=== PATIENT | male | born 1950 | race Caucasian/White ===

== ENCOUNTER → 2019-09-18 15:39 | Outpatient (CLI) | payer MEDICARE, SELFPAY ==
--- NOTE | 2019-09-18 | DI.RAD.S_ITS ---
PROCEDURE: XR CHEST 2V INDICATIONS: Fever, unspecified cause TECHNIQUE: 2 views of the chest were acquired. COMPARISON: None. FINDINGS: Surgical changes and devices: None. Lungs and pleura: Lungs are clear. No pleural effusions or pneumothorax. Mediastinum: Mediastinal contours are normal. Heart size is normal. Bones and chest wall: No suspicious bony abnormalities. Soft tissues appear unremarkable. IMPRESSION: No acute cardiopulmonary disease process. Dictated by: Pamela Aragon MD, PhD on 09/18/2019 at 18:13 Approved by: Pamela Aragon MD, PhD on 09/18/2019 at 18:14
[2019-09-18 15:49] LABS: Bacteria Urine None Seen; RBC Urine None Seen (0-5/HPF)
[2019-09-18 17:38] LABS: Add Manual Diff / Slide Review NO; Basophils Absolute Auto 0 /uL (0-100); Basophils Percent Auto 0.9 % (0-2); Eosinophils Absolute Auto 0 /uL (0-450); Hematocrit 45.3 % (41-53); Hemoglobin 15.7 g/dL (13.5-17.5); Lymphocytes Absolute Auto 800 /uL (1100-4500); Lymphocytes Percent Auto 22.3 % (25-40); Mean Corpuscular HGB Conc 34.7 % (30-36); Mean Corpuscular Hemoglobin 34.6 PG (26-34); Mean Corpuscular Volume 99.6 fL (80-100); Monocytes Absolute Auto 500 /uL (0-900); Monocytes Percent Auto 14.2 % (3-14); Neutrophils Absolute Auto 2300 /uL (1500-7000); Neutrophils Percent Auto 62.6 % (50-75); Platelet Count 146 X10^3/uL (150-400); Red Blood Cell Count 4.54 X10^6/uL (4.5-5.9); Red Cell Distribution Width 12.9 % (11.6-14.8); White Blood Cell Count 3.6 X10^3/uL (4.5-11.0)
[2019-09-18 17:55] LABS: Appearance Urine UA SL CLOUDY; Bilirubin Urine UA NEGATIVE (NEGATIVE); Color Urine UA YELLOW; Glucose Urine UA NEGATIVE (Negative); Ketones Urine UA 1+ (NEGATIVE); Leukocyte Esterase Urine UA NEGATIVE (NEGATIVE); Nitrite Urine UA NEGATIVE (Negative); Occult Blood Urine UA NEGATIVE (Negative); Protein Urine UA NEGATIVE (Negative); Specific Gravity Urine UA 1.025 (1.000-1.035); Urobilinogen Urine UA 0.2 E.U./dL (0.2)
[2019-09-18 18:09] LABS: Squamous Epithelial Cell Urine 0-1 /HPF (0-5/HPF); WBC Urine 1-5/HPF (0-5/HPF)
[2019-09-18 18:10] LABS: Culture Indicated Urine Cult Not Indicated; Mucus Urine 2+ (Negative)
== END ==
PROVIDERS: PCP Physician Assistant; Referring Provider Internal Medicine; Visit Provider Internal Medicine
DX: R50.9 Fever, unspecified (principal)
CPT/HCPCS: 36415; 71046; 81001; 85025

== ENCOUNTER → 2020-03-03 08:50 | Outpatient (CLI) | payer MEDICARE, SELFPAY ==
--- NOTE | 2020-03-03 | DI.US.S_ITS ---
PROCEDURE: US ABDOMEN LIMITED INDICATIONS: UMBILICAL HERNIA TECHNIQUE: Real-time focused scanning was performed of the abdomen, with image documentation. COMPARISON: None. FINDINGS: At the umbilical margin there is a deviation of sub peritoneal bowel ventrally, showing peristalsis, without evidence of incarceration or strangulation. IMPRESSION: Periumbilical hernia containing bowel, through a 2.2 cm peritoneal defect virtually at the umbilical margin. No sign of incarceration or strangulation. Dictated by: Kg Meyer M.D. on 03/03/2020 at 10:27 Approved by: Kg Meyer M.D. on 03/03/2020 at 10:29
== END ==
PROVIDERS: PCP Physician Assistant; Referring Provider Physician Assistant; Visit Provider Physician Assistant
DX: K42.9 Umbilical hernia without obstruction or gangrene (principal)
CPT/HCPCS: 76705

== ENCOUNTER → 2020-03-23 10:56 | Outpatient (CLI) | payer MEDICARE, SELFPAY ==
[2020-03-24 17:45] LABS: COVID19 Sendout Not Detected (Not Detect)
== END ==
PROVIDERS: PCP Physician Assistant; Visit Provider Physician Assistant
DX: Z11.59 Encounter for screening for other viral diseases (principal)
CPT/HCPCS: 87635

== ENCOUNTER 2020-03-26 07:37 | Day surgery (SDC) | payer MEDICARE, SELFPAY ==
[2020-03-25 07:34] VITALS: BMI 26.3
[2020-03-26] VITALS (10 sets, daily range): BP systolic 139–166; BP diastolic 69–88; PULSE 56–68; RESP 10–17; TEMP 36.2–36.8; O2SAT 15–100; BMI 26.3
--- NOTE | 2020-03-26 08:16 | PM.PREOP ---
Pre-operative Note COVID-19 COVID-19 status: Negative Result date/Date tested (Pos, Neg/Pending): 03/23/20 Interval Note History & Physical reviewed/Exam performed by Physician: Yes Changes to H&P: No
[2020-03-26] MEDS: LACTATED RINGERS 1,000 ML 100 ML IV ×2 (08:22→09:33)
[2020-03-26] MEDS: CEFAZOLIN 2 GM/100 ML FROZ.PIGGY IV (08:55)
--- NOTE | 2020-03-26 09:11 | SUR.OPER ---
Supine on padded OR bed, head on pillow, arms secured on padded arm boards at <90 degrees abduction, legs uncrossed, safety belt at thigh, tape over blanket over lower legs.
[2020-03-26] MEDS: BUPIVACAINE 0.25% W/ EPI 30 ML VIAL INJ (09:14)
[2020-03-26] MEDS: BUPIVACAINE LIPOSOME 266 MG/20 ML VIAL INJ (09:49)
[2020-03-26] MEDS: OXYCODONE/ACETAMINOPHEN 5/325 TABLET 1 TAB PO (10:25)
--- NOTE | 2020-03-26 10:25 | P.OP_ITS ---
Operative Date/Time/Diagnoses Date of procedure: 03/26/20 Time of procedure: 10:25 Pre-op diagnosis: umbilical hernia Post-op diagnosis: same Procedure & Clinicians Procedure: Open repair of 2 cm umbilical hernia with mesh Same procedure as scheduled: Yes Indications: 69 yo man with symptomatic umbilical hernia which is increasing in size and tenderness, as well as risk of incarceration. Surgeon: Michelle Delatorre Click Yes if Unassisted: Yes Anesthesia Type: General Operative Notes Findings: 2 cm umbilical hernia defect Specimen(s): none sent Prosthetic devices, grafts, tissues, transplants, or devices: BARD 4.3 cm ventralex mesh Estimated Blood Loss (mL): 1 Blood products transfused: none Procedure in detail: The patient was brought to the operating room, placed supine on the operating table, and sequential compression devices were placed on both legs and turned on. Appropriate perioperative antibiotics were given. General anesthesia was induced by the anesthesiologist and the patient was intubated with an LMA. The abdomen was then prepped and draped in sterile fashion, and a surgical time-out was conducted. At this point local anesthetic was injected using 0.25% Marcaine with epi, at the site of the planned incision. A 3cm transverse curvilinear incision was then made in the skin on the superior border of the umbilicus. Dissection was then carried down through the dermis and subcutaneous tissue, until the hernia sac was encountered. I dissected circumferentially around the hernia sac, which was divided off of the umbilical skin The hernia defect was 2 cm in diameter. The peritoneal sac was closed with 3-0 Vicryl and reduced through the defect. The preperitoneal space was dissected to accomodate a 4.3cm mesh posterior to the fascia overlying the peritoneal closure. A 4.3cm BARD Ventralex mesh was brought into the field and placed into the defect, between the peritoneum and the fascia. It was then sutured to the fascia in four corners using 2-0 PDS suture. I then closed the fasical defect with 2-0PDS figure of eights. I then injected the fascia with 20mL of 0.25% Marcaine with epi, and 20mL of Exparel in small aliquots. I then brought together the subcutaneous fat with 3-0 Vicryl suture, tacked down the umbilical skin with 3-0 Vicryl and closed the skin with subcuticular Monocryl 4-0. The skin edges were then sealed with Dermabond. This concluded the procedure. Two cotton balls were placed in the umbilicus and covered with a Tegaderm. The patient was awakened from anesthesia and extubated. He was transferred onto his [facility]. The patient was then transferred to the postanesthesia care unit in stable condition. He tolerated the procedure well. Needle sponge and instrument counts were correct x2 at the end of the case. Complications: none Post-operative Condition: stable Disposition: PACU
--- NOTE | 2020-03-26 10:47 | SUR.PHASEII ---
Pt arrived to phase II via stretcher. Pt sitting up and drinking beverage. Pt alert and orientated. pt reports pain is tolerable at this time, rating 2/10 at surgical site. Drsg observed to be c/d/i. Bed in lowest position and call light given to pt. Pt appears comfortable at this time.
== END 2020-03-26 11:15 | disposition home or self-care (01) ==
PROVIDERS: PCP Physician Assistant; Referring Provider Physician Assistant; Visit Provider Surgery
PROC: (CPT 49585; principal; 2020-03-26 08:45)
DX: K42.9 Umbilical hernia without obstruction or gangrene (principal); J45.909 Unspecified asthma, uncomplicated
CPT/HCPCS: 49585; C1781; C9290; J0330; J0690; J1100; J2405; J2704; J3010

== ENCOUNTER → 2020-06-03 08:55 | Outpatient (CLI) | payer MEDICARE, SELFPAY ==
--- NOTE | 2020-06-03 | DI.US.S_ITS ---
PROCEDURE: US SCROTUM INDICATIONS: RIGHT SCROTAL PAIN TECHNIQUE: Real-time scanning was performed of the scrotum and testicles, with image documentation. Color and pulse Doppler interrogation was performed of both testicles. COMPARISON: None. FINDINGS: Right: Testicle is normal in size at 2.0 x 3.2 x 4.5 cm, and homogenous in echotexture. Epididymis is normal in overall size and morphology. No hydrocele or varicoceles. Overlying scrotal skin is normal in thickness. Left: Testicle is normal in size at 2.0 x 2.9 x 4.0 cm, and homogeneous in echotexture. Epididymis is normal in overall size and morphology. No hydrocele or varicoceles. Overlying scrotal skin is normal in thickness. Doppler: Color and pulse Doppler demonstrate normal and symmetric arterial flow in both testicles. IMPRESSION: Normal scrotal ultrasound bilaterally, source of current pain is not seen. Dictated by: Kg Meyer M.D. on 06/03/2020 at 13:20 Approved by: Kg Meyer M.D. on 06/03/2020 at 13:22
== END ==
PROVIDERS: PCP Physician Assistant; Referring Provider Physician Assistant; Visit Provider Physician Assistant
DX: N50.811 Right testicular pain (principal)
CPT/HCPCS: 76870

== ENCOUNTER → 2020-11-27 08:51 | Outpatient (CLI) | payer MEDICARE, SELFPAY ==
[2020-11-27 09:50] LABS: Basophils Absolute Auto 100 /uL (0-100); Basophils Percent Auto 1.1 % (0-2); Eosinophils Absolute Auto 400 /uL (0-450); Eosinophils Percent Auto 9.1 % (2-4); Hematocrit 43.2 % (41-53); Hemoglobin 15.1 g/dL (13.5-17.5); Lymphocytes Absolute Auto 1000 /uL (1100-4500); Lymphocytes Percent Auto 22.8 % (25-40); Mean Corpuscular Hemoglobin 34.7 PG (26-34); Mean Corpuscular Volume 99.1 fL (80-100); Monocytes Absolute Auto 300 /uL (0-900); Monocytes Percent Auto 7.5 % (3-14); Neutrophils Absolute Auto 2600 /uL (1500-7000); Neutrophils Percent Auto 59.5 % (50-75); Platelet Count 178 X10^3/uL (150-400); Red Blood Cell Count 4.36 X10^6/uL (4.5-5.9); Red Cell Distribution Width 13.2 % (11.6-14.8); White Blood Cell Count 4.4 X10^3/uL (4.5-11.0)
[2020-11-27 10:03] LABS: Add Manual Diff / Slide Review SLIDE REVIEW
[2020-11-27 10:09] LABS: Alanine Aminotransferase 25 IU/L (<50); Albumin Globulin Ratio 1.3 (1.0-2.8); Alkaline Phosphatase 41 U/L (38-126); Aspartate Aminotransferase 31 IU/L (17-59); BUN Creatinine Ratio 23.3 (6-22); Bilirubin Total 0.5 mg/dL (0.2-1.3); Blood Urea Nitrogen 17 mg/dL (9-20); Calcium 9.2 mg/dL (8.4-10.2); Carbon Dioxide 29 mmol/L (22-32); Chloride 106 mmol/L (98-107); Cholesterol 138 mg/dL (140-199); Estimated Glomerular Filt Rate > 60.0 mL/min (>60); Globulin 3.2 g/dL (1.7-4.1); Glucose 98 mg/dL (80-110); HDL Cholesterol 60 mg/dL (40-60); HEMOLYSIS < 15 (0-50); LDL Cholesterol Calculated 64 mg/dL (<100); Sodium 141 mmol/L (137-145); Total Protein 7.2 g/dL (6.3-8.2); Triglycerides 71 mg/dL (35-150)
[2020-11-27 10:18] LABS: RBC Morphology Normal Morphology
== END ==
PROVIDERS: PCP Physician Assistant; Referring Provider Physician Assistant; Visit Provider Physician Assistant
DX: E78.5 Hyperlipidemia, unspecified (principal); I10 Essential (primary) hypertension
CPT/HCPCS: 36415; 80053; 80061; 85025

== ENCOUNTER → 2021-09-30 09:49 | Outpatient (CLI) | payer OTHER, SELFPAY | PROVIDERS: PCP Physician Assistant; Referring Provider Physician Assistant; Visit Provider Physician Assistant | DX: R19.7 Diarrhea, unspecified (principal) | CPT/HCPCS: 87045; 87177; 87329; 87493; 87899 ==

== ENCOUNTER → 2021-10-21 11:50 | Outpatient (CLI) | payer MEDICARE, SELFPAY ==
[2021-10-21 12:28] LABS: Add Manual Diff / Slide Review NO; Basophils Absolute Auto 0 /uL (0-100); Basophils Percent Auto 1.1 % (0-2); Eosinophils Absolute Auto 100 /uL (0-450); Eosinophils Percent Auto 1.8 % (2-4); Hematocrit 42.5 % (41-53); Hemoglobin 14.7 g/dL (13.5-17.5); Lymphocytes Absolute Auto 1400 /uL (1100-4500); Lymphocytes Percent Auto 33.9 % (25-40); Mean Corpuscular HGB Conc 34.6 % (30-36); Mean Corpuscular Hemoglobin 34.1 PG (26-34); Mean Corpuscular Volume 98.7 fL (80-100); Monocytes Absolute Auto 300 /uL (0-900); Monocytes Percent Auto 8.2 % (3-14); Neutrophils Absolute Auto 2200 /uL (1500-7000); Platelet Count 166 X10^3/uL (150-400); Red Cell Distribution Width 13.6 % (11.6-14.8); White Blood Cell Count 4.1 X10^3/uL (4.5-11.0)
== END ==
PROVIDERS: PCP Physician Assistant; Referring Provider Physician Assistant; Visit Provider Physician Assistant
DX: D72.818 Other decreased white blood cell count (principal)
CPT/HCPCS: 36415; 85025

== ENCOUNTER → 2022-02-04 09:55 | Outpatient (CLI) | payer MEDICARE, SELFPAY ==
[2022-02-04 10:32] LABS: Add Manual Diff / Slide Review NO; Basophils Absolute Auto 0 /uL (0-100); Basophils Percent Auto 1.1 % (0-2); Eosinophils Absolute Auto 100 /uL (0-450); Eosinophils Percent Auto 3.6 % (2-4); Hematocrit 41.4 % (41-53); Hemoglobin 14.3 g/dL (13.5-17.5); Lymphocytes Absolute Auto 1200 /uL (1100-4500); Lymphocytes Percent Auto 29.8 % (25-40); Mean Corpuscular HGB Conc 34.6 % (30-36); Mean Corpuscular Hemoglobin 34.5 PG (26-34); Monocytes Absolute Auto 400 /uL (0-900); Monocytes Percent Auto 9.2 % (3-14); Neutrophils Absolute Auto 2300 /uL (1500-7000); Neutrophils Percent Auto 56.3 % (50-75); Platelet Count 160 X10^3/uL (150-400); Red Blood Cell Count 4.14 X10^6/uL (4.5-5.9); Red Cell Distribution Width 13.3 % (11.6-14.8)
== END ==
PROVIDERS: PCP Physician Assistant; Referring Provider Physician Assistant; Visit Provider Physician Assistant
DX: D72.818 Other decreased white blood cell count (principal)
CPT/HCPCS: 36415; 85025

== ENCOUNTER → 2022-02-17 10:23 | Outpatient (CLI) | payer MEDICARE, SELFPAY ==
[2022-02-17 11:49] LABS: COVID19 -Nasal RAPID Negative (Negative)
== END ==
PROVIDERS: PCP Physician Assistant; Visit Provider Surgery
DX: Z20.822 Contact with and (suspected) exposure to COVID-19 (principal); Z01.812 Encounter for preprocedural laboratory examination
CPT/HCPCS: 87635; C9803

== ENCOUNTER 2022-02-18 08:27 | Day surgery (SDC) | payer MEDICARE, SELFPAY ==
--- NOTE | 2022-02-18 | PATH_ITS ---
[facility] Accession Number: [id number] . 01 Material submitted: . PART A: colon - TRANSVERSE COLON POLYP PART B: rectum - RECTAL POLYP . 01 Diagnosis: A. Transverse Colon, Polyp, Biopsy: Tubular adenoma in 1 of 3 fragments. Benign lymphoid aggregate in 1 fragment. . B. Rectum, Polyp, Biopsy: Tubular adenoma in 1 of 3 fragments. Hyperplastic polyp, 2 fragments. JNL 02/19/2022 1226 Local . 01 Electronically signed: . Adrianna Friedman MD, Pathologist NPI- [id number] . 01 Gross description: . Part A: TRANSVERSE COLON POLYP: Received in formalin are 3 fragment(s) of bernal, soft tissue measuring 0.8 x 0.7 x 0.1 cm to 0.2 x 0.1 x 0.1 cm submitted entirely in 1 cassette(s) Part B: RECTAL POLYP: Received in formalin are 2 fragment(s) of bernal, soft tissue measuring 0.8 x 0.5 x 0.4 cm to 0.5 x 0.3 x 0.3 cm submitted entirely in 1 cassette(s) /CPE 02/19/2022 0301 Local . 01 Pathologist provided ICD-10: D12.3, D12.8 . 01 CPT . 109518, 178883 Specimen Comment: A courtesy copy of this report has been sent to [phone] Performed at: [facility] [address] [place] [address] [id number] MD Brian Montemayor MD Phone: [phone]
[2022-02-18 08:40] VITALS: BP 169/78; PULSE 50; RESP 16; TEMP 36.4; O2SAT 99; BMI 23.7
[2022-02-18] MEDS: LACTATED RINGERS 1,000 ML 150 ML IV (08:55)
--- NOTE | 2022-02-18 09:37 | PM.HP.1 ---
History of Present Illness History of Present Illness Date Patient Seen: 02/18/22 Time Patient Seen: 09:37 Chief complaint: SDC Narrative: Giorgi is a 71-year-old man who is here for colonoscopy. He believes he had one 8-10 years ago and maybe a few small polyps were removed. He has known known family history colon cancer. Patient History Medical History (Updated 02/18/22 @ 09:38 by Nuno Weaver MD) Asthma Elevated cholesterol Hx of pilonidal cyst (05/1972) Vertigo Surgical History (Updated 04/11/20 @ 22:34 by Michelle Delatorre MD) Hx of cataract surgery (11/2018) Hx of tonsillectomy (1954) Hx of vasectomy (12/1992) Family & Social History Family History Mother Hypertension Father Gallstones Social History: household members spouse Tobacco & Substance use: Smoking Status Former smoker alcohol intake current alcohol intake frequency 0-2 drinks per day Substance Use Type does not use Meds Home Medications and Allergies Home Medications Medication Instructions Recorded Confirmed Type ascorbate calcium (vitamin C) 500 1,000 mg PO DAILY 03/20/20 04/10/20 History mg tablet atorvastatin 10 mg tablet 10 mg PO DAILY 03/20/20 02/18/22 History beclomethasone dipropionate 40 1 inhalation inhalation DAILY 03/20/20 04/10/20 History mcg/actuation HFA breath activated aerosol (Qvar RediHaler) multivitamin 1 cap PO DAILY 03/20/20 04/10/20 History albuterol sulfate 90 mcg/actuation 1 - 2 puff inhalation Q4-6H PRN 03/25/20 04/10/20 History aerosol inhaler Shortness Of Breath docusate sodium 100 mg capsule 100 mg PO BID prevent constipation 03/26/20 04/10/20 Rx from pain meds #20 caps sodium sul 1.479 gram-potas ch See Rx Instructions PO PER PKG DIR 02/02/22 Rx 0.188 gram-magnes sul 0.225 gram #24 tabs tablet (Sutab) Allergies Allergy/AdvReac Type Severity Reaction Status Date / Time No Known Drug Allergies Allergy Verified 02/18/22 08:51 Exam Vital Signs (past 8 hours): - 02/18/22 08:40 Temperature 97.5 F L Pulse Rate 50 L Respiratory Rate 16 Blood Pressure 169/78 H Pulse Oximetry 99 Oxygen Delivery Method Room Air Oxygen Delivery Method Room Air Const General: healthy appearing Resp Effort & Inspection: normal respiratory effort Assessment & Plan Assessment and plan (1) Colon cancer screening: Status: Acute Plan 71-year-old man here for colonoscopy for colon cancer screening. We discussed the risks benefits of colonoscopy with sedation and he would like to proceed COVID-19 COVID-19 status: Negative Result date/Date tested (Pos, Neg/Pending): 02/17/22 Time Spent With Patient Critical Care time: I spent a total of [] minutes of critical care time on this patient's care today; this time is exclusive of procedural time.
[2022-02-18] MEDS: fentaNYL 250 MCG/5 ML INJ 100 MCG IV (09:46)
[2022-02-18] MEDS: MIDAZOLAM 5 MG/5 ML VIAL IV (09:46)
--- NOTE | 2022-02-18 10:07 | PM.OP.COLON ---
Operative Date/Time/Diagnoses Date of procedure: 02/18/22 Time of procedure: 10:07 Pre-op diagnosis: Colon cancer screening Post-op diagnosis: same Procedure & Clinicians Study performed: Colonoscopy Same procedure as scheduled: Yes Surgeon: Nuno Weaver Procedure Notes Procedure in detail: Surgeon: Nuno Weaver MD Procedure: The patient was brought to the endoscopy suite, placed in left lateral decubitus position. The patient was connected to monitoring devices. A time-out was performed. Sedation was administered. Once the patient was adequately sedated, a digital rectal exam was performed and was normal. The scope was then inserted and advanced to the cecum where the appendiceal orifice was identified and photographed. The scope was then slowly withdrawn over greater than 6 minutes. The mucosa was thoroughly inspected. There was a small polyp in the transverse colon about 6 mm and removed with cold snare. There was a 5 mm polyp in the distal rectum which was removed with a hot snare. The scope was retroflexed in the rectum. No other abnormalities were noted. The scope was straightened and removed. The patient was awakened and brought to recovery. Versed: 5 mg Fentanyl: 100 mcg EBL: 5 mL Findings: 6 mm polyp in the transverse colon and 5 mm polyp in the rectum Scope withdrawal time: 12 Sedation minutes: 22 Post-procedure Recommendations: Will call with biopsy results Disposition: PACU
[2022-02-18 10:10] VITALS: BP 129/69; PULSE 56; RESP 11; TEMP 35.5; O2SAT 97
[2022-02-18 10:15] VITALS: BP 133/68; PULSE 77; RESP 20; TEMP 36.9; O2SAT 98
[2022-02-18 10:20] VITALS: BP 137/78; PULSE 68; RESP 14; TEMP 36.6; O2SAT 96
[2022-02-18 10:25] VITALS: BP 128/66; PULSE 58; RESP 12; TEMP 36.3; O2SAT 95
[2022-02-18 10:36] VITALS: BP 131/67; PULSE 55; RESP 12; TEMP 36.7; O2SAT 98
--- NOTE | 2022-02-18 11:29 | SUR.PHASEII ---
Assumed care from IVET Zurita, d/c instructions discussed, pt left when ready and left in stable condition.
== END 2022-02-18 10:45 | disposition home or self-care (01) ==
PROVIDERS: PCP Physician Assistant; Referring Provider Surgery; Visit Provider Surgery
PROC: 0DJD8ZZ Inspection of Lower Intestinal Tract, Via Natural or Artificial Opening Endoscopic (ICD-10-PCS; CPT 45378; principal; 2022-02-18 09:45)
DX: Z12.11 Encounter for screening for malignant neoplasm of colon (principal); D12.3 Benign neoplasm of transverse colon; D12.8 Benign neoplasm of rectum; Z80.0 Family history of malignant neoplasm of digestive organs; Z87.891 Personal history of nicotine dependence
CPT/HCPCS: 45385; 99152; J2250; J3010

== ENCOUNTER → 2022-09-27 10:46 | Outpatient (CLI) | payer MEDICARE, SELFPAY | PROVIDERS: PCP Physician Assistant; Visit Provider Student in an Organized Health Care Education/Training Program | DX: R39.89 Other symptoms and signs involving the genitourinary system (principal) | CPT/HCPCS: 87086 ==

== ENCOUNTER → 2023-01-11 07:46 | Outpatient (CLI) | payer OTHER, SELFPAY ==
--- NOTE | 2023-01-11 | DI.US.S_ITS ---
PROCEDURE: US ABD AORTA ANEURYSM SCREEN INDICATIONS: SCREENING FOR AAA TECHNIQUE: Real-time scanning was performed of the aorta and proximal common iliac arteries, with image documentation. COMPARISON: None. FINDINGS: Aorta: Abdominal aorta is normal in caliber throughout its length. Iliacs: Proximal common iliac arteries are normal in caliber. IMPRESSION: No aortic aneurysm or ectasia. Dictated by: Honorio Gee M.D. on 01/11/2023 at 9:15 Approved by: Honorio eGe M.D. on 01/11/2023 at 9:16
== END ==
PROVIDERS: PCP Physician Assistant; Referring Provider Physician Assistant; Visit Provider Physician Assistant
DX: Z13.6 Encounter for screening for cardiovascular disorders (principal)
CPT/HCPCS: 76706

== ENCOUNTER → 2024-01-10 10:41 | Outpatient (CLI) | payer MEDICARE, SELFPAY ==
[2024-01-10 13:07] LABS: BUN Creatinine Ratio 23.5 (6-22); Blood Urea Nitrogen 19 mg/dL (9-20); Calcium 8.8 mg/dL (8.4-10.2); Carbon Dioxide 32 mmol/L (22-32); Chloride 107 mmol/L (98-107); Estimated Glomerular Filt Rate > 60 mL/min (>60); Glucose 110 mg/dL (80-110); HEMOLYSIS < 15 (0-50); Potassium 4.2 mmol/L (3.4-5.1); Sodium 141 mmol/L (137-145)
== END ==
PROVIDERS: PCP Physician Assistant; Referring Provider Internal Medicine; Visit Provider Internal Medicine
DX: R10.32 Left lower quadrant pain (principal)
CPT/HCPCS: 36415; 80048